=== PATIENT | male | born 1945 | race Caucasian/White ===

== ENCOUNTER 2020-10-28 08:47 | Observation (INO) ==
--- NOTE | 2020-09-29 12:11 | PAT Medication Instructions ---
Medication Instructions Date of Service September 29, 2020 Home Medications aspirin 81 mg PO QAM atorvastatin [Lipitor] 10 mg PO HS fluticasone propion-salmeterol [Advair Diskus] 1 inh INHALATION HS multivitamin 1 tab PO QAM valsartan [Diovan] 160 mg PO QAM DO NOT take the morning of surgery multivitamin 1 tab PO QAM valsartan [Diovan] 160 mg PO QAM Take morning of surgery With a small sip of water, OTHERWISE NOTHING TO EAT OR DRINK AFTER MIDNIGHT: aspirin 81 mg PO QAM (continue as normal unless told otherwise by surgeon) Take evening before surgery atorvastatin [Lipitor] 10 mg PO HS fluticasone propion-salmeterol [Advair Diskus] 1 inh INHALATION HS Other Notes If you have any questions please call us at [phone] or [phone] or [phone] or [phone]
--- NOTE | 2020-10-02 10:56 | Anesthesiology Consultation ---
Date of Service October 02, 2020 Assessment & Plan (1) Encounter for pre-operative examination: - COVID screening: Per assessment on 10/02: Travel screen negative, no known COVID-19 positive contacts or current COVID-19 related symptoms. Patient vaccinated. Surgeon arranging preop COVID testing. Awaiting results. - S/P Right TKA (10/22/15): SAB at L3/4 + PNB at [facility] Chart Review Chart Review: Acceptable Risk for Surgery (pending surgeon-ordered PCP clearance) and Patient seen in Pre Admission Testing Teaching & Discussion Pre-Anesthesia Teaching/Discussion Notes: Instructed NPO after midnight before surgery,except medications with 15 cc of water. Medication instructions provided according to the PAT guidelines. History Surgery Operation Date: 10/28/20 12:35 Proposed Procedures p Left Total Knee Arthroplasty - Hollis Arana DO Height/Weight Height: 5 ft 11 in Weight: 117.4 kg Allergies Allergy/AdvReac Type Severity Reaction Status Date / Time No Known Allergies Allergy Verified 09/24/20 14:55 Medications Home Medications Medication Instructions Recorded Confirmed Last Taken aspirin 81 mg tablet 81 mg PO QAM 09/24/20 09/24/20 Unknown atorvastatin 10 mg tablet (Lipitor) 10 mg PO HS 09/24/20 09/24/20 Unknown fluticasone 250 mcg-salmeterol 50 1 inh INHALATION HS 09/24/20 09/24/20 Unknown mcg/dose blistr powdr for inhalation (Advair Diskus) multivitamin 1 tab PO QAM 09/24/20 09/24/20 Unknown valsartan 160 mg tablet (Diovan) 160 mg PO QAM 09/24/20 09/24/20 Unknown Past Medical History Medical History Arthritis Asthma stable Chronic kidney disease Stage III History of colitis Hyperlipidemia Hypertension Obesity Exercise / Class Metabolic Activity II 4-5 Yardwork/Stairs/Walk up hill Past Surgical History Surgical History History of colonoscopy History of esophagogastroduodenoscopy (EGD) History of repair of rotator cuff R/L History of tonsillectomy History of tooth extraction History of total knee replacement Right TKA (10/22/15): SAB at L3/4 + PNB at [facility] Past Anesthesia History No Family Hx of Anesthesia Complications (except father (post-op nausea)) History of PONV No Hx of Motion Sickness and History of PONV (* "Everytime" *) Social History Smoking Status: Never smoker Do You Dip or Chew Tobacco: No Hx Alcohol Use: Yes alcohol intake frequency: holidays/special occasions only substance use type: does not use Review of Systems Patient denies chest pain, shortness of breath, dyspnea on exertion, fever, chills, cough, wheezing, palpitations. Physical Exam Vital Signs VITALS BP 123/80 P 69 TEMP 98.3 SP02 94%RA RESP 16 PHYSICAL Full cervical extension range of motion. Full TMJ range of motion. TMD 4 finger breaths Mallampati Score 2 Dentition: full upper dentures Lungs: clear throughout to auscultation Cardiac: regular rate and rhythm, no murmurs noted Spine: normal Carotid arteries: negative bruit Extremities: no edema Lab Results Anesthesia Preop Results Results Anesthesia Widget: WBC 5.23 K/uL (4.8-10.8) 10/02/20 Hgb 15.1 g/dL (14.0-18.0) 10/02/20 Hct 46.6 % (42-52) 10/02/20 Plt 192 K/uL (130-400) 10/02/20 Na 142 mmol/L (136-145) 10/02/20 K 4.1 mmol/L (3.5-5.1) 10/02/20 Cl 109 mmol/L (98-107) H 10/02/20 CO2 31 mmol/L (21-32) 10/02/20 BUN 22 mg/dl (7-18) H 10/02/20 Creat 1.59 mg/dl (0.6-1.4) H 10/02/20 Glucose Level 126 mg/dl (70-99) H 10/02/20 HA1c 6.1 % (4.5-5.6) H 10/02/20 Urine Color Yellow 10/02/20 Urine Appearance Clear (Clear) 10/02/20 Urine pH 5.5 (4.5-7.5) 10/02/20 Urine Specific Nelson 1.014 (1.000-1.030) 10/02/20 Urine Protein Negative (Negative) 10/02/20 Urine Glucose (UA) Negative (Negative) 10/02/20 Urine Ketones Negative (Negative) 10/02/20 Urine Blood Negative (Negative) 10/02/20 Urine Nitrite Negative (Negative) 10/02/20 Urine Bilirubin Negative (Negative) 10/02/20 Urine Urobilinogen Negative (Negative) 10/02/20 Urine Leukocyte Esterase Negative (Negative) 10/02/20 Blood Type O Positive 10/02/20 Antibody Screen NEGATIVE 10/02/20 Testing Electrocardiogram Date: 08/26/20 Normal sinus rhythm at 60 bpm. LAD. Incomplete RBBB. Chest X-Ray Date: 10/02/20 FINDINGS: Cardiomediastinal and hilar silhouettes are within normal limits. No pneumothorax, pleural effusion, airspace consolidation or overt pulmonary edema. Degenerative changes of the shoulders and spine. Mild eventration of the right hemidiaphragm. IMPRESSION: No acute process. Stress Test Date: 08/23/17 Type: exercise Stress echo negative for inducible ischemia. No chest discomfort reported. Blood pressure response to exercise was normal. Exercise capacity is average. No significant valvular disease on rest echo. LVEF 60 to 65%. 97% MPHR. 9 METS.
--- NOTE | 2020-10-16 13:35 | History & Physical Report ---
Date of Service October 16, 2020 date of surgery: 10/28/20 Procedure: Left Total Knee Arthroplasty Assessment & Plan (1) Arthritis of knee, left: Plan: Further care discussed with patient and at this point in time has failed conservative measures and would like to proceed with a left total knee replacement. Plan on discharge will be home with home health physical therapy. DVT prophalaxis with TEDs, SCDs and will also place on aspirin 81 mg p.o. b.i.d. for a month postop. Patient will have follow up appointment in our office two weeks post op for staple/suture removal and re-evaluation. Patient otherwise has no other questions or concerns. The risks and benefits have been discussed including, but not limited to, risk of infection, nerve injury, stiffness, loss of motion, failure to improve, etc. Reasonable outcomes and options of treatment were discussed. An explanation of appropriate alternatives to the procedure that may be advantageous were discussed and their risks and benefits, as well as the risks and benefits of not proceeding with treatment. I offered to answer any additional inquiries concerning the treatment involved. All the patient's questions were answered. The patient is agreeable, understanding of the treatment plan and alternatives, and wishes to proceed with the treatment plan. History of Present Illness Chief Complaint: left knee pain Primary Care Provider: DO Prasanna Glez is a 74 year old male who complains of left knee pain, presents for pre- op evaluation prior to a left total knee replacement by Dr Arana at [facility]. He complains of pain, decreased range of motion, instability and stiffness in his left knee. Currently he states that the symptoms are moderate-severe and rated as 6/10. The pain is described as aching, sharp and throbbing. His symptoms are aggravated by ascending stairs, daily activities, first steps while awake walking. Prior NSAIDs include IBU and Aleve. He has been treated with previous cortisone injections in the past without much relief. He had prior Left knee arthroscopy with partial medial meniscectomy Chondroplasty patella Removal loose body by Dr Arana in August 2019. Allergies Allergy/AdvReac Type Severity Reaction Status Date / Time No Known Allergies Allergy Verified 09/24/20 14:55 Home Medications Medication Instructions Recorded Confirmed Type aspirin 81 mg tablet 81 mg PO QAM 09/24/20 09/24/20 History atorvastatin 10 mg tablet (Lipitor) 10 mg PO HS 09/24/20 09/24/20 History fluticasone 250 mcg-salmeterol 50 1 inh INHALATION HS 09/24/20 09/24/20 History mcg/dose blistr powdr for inhalation (Advair Diskus) multivitamin 1 tab PO QAM 09/24/20 09/24/20 History valsartan 160 mg tablet (Diovan) 160 mg PO QAM 09/24/20 09/24/20 History Past Med/Surg History Medical History Arthritis Asthma stable Chronic kidney disease Stage III History of colitis Hyperlipidemia Hypertension Obesity Surgical History History of colonoscopy History of esophagogastroduodenoscopy (EGD) History of repair of rotator cuff R/L History of tonsillectomy History of tooth extraction History of total knee replacement Right TKA (10/22/15): SAB at L3/4 + PNB at [facility] Social History Smoking Status: Never smoker Second Hand Exposure: Yes (IN THE PAST); Do You Dip or Chew Tobacco: No; Hx Alcohol Use: Yes Preferred Language: Maori Rotary Driller Required: No Beliefs That Will Affect Care: None Current Living Situation: Family Current Living Situation Comment: AND SON Feels Safe at Home: Yes Safety Concerns: Feels Safe At This Time Assistive Devices: Denture - Upper and Glasses Review of Systems Review of Systems: All systems reviewed & are unremarkable except as noted in HPI & below Constitutional: no fever, no chills and no sweats Respiratory: no cough and no dyspnea Cardiovascular: no chest pain, no dyspnea and no orthopnea Gastrointestinal: no abdominal pain, no nausea and no vomiting Musculoskeletal: as per Subjective / HPI Physical Exam Physical Exam: HT: 5ft 11in WT: 117.4kg Constitutional: WD/WN, vitals as above no acute distress Respiratory: normal respiratory effort, lungs clear to auscultation no respiratory distress, no labored breathing and does not use accessory muscles Cardiovascular: RRR, no murmur, no edema Gastrointestinal (Abdomen): normal bowel sounds, soft, nontender, no hepatosplenomegaly Musculoskeletal: Knee: + knee abnormal to inspection (LEFT KNEE), + effusion (+1 effusion), + surgical incision (well healed portals), + limited ROM of knee (ROM 0/3/110), + knee ROM with crepitation, + joint line tenderness (medial kyung int line) and + Julianne's sign positive; no deformity, no skin erythema, no ecchymosis, no valgus laxity, no varus laxity, anterior drawer test negative, Norman's sign negative and pivot shift test negative Results & Data Results & Data ([facility]) Diagnostic Findings Left Knee X-ray: left knee series confirm advanced degenerative changes to the left knee, greatest medial compartments and patellofemoral joint, showing joint space narrowing, osteophyte formation and subchondral sclerosis. no acute bony patho logy noted.
[~2020-10-28 08:47] MED LIST: ACETAMINOPHEN 500 MG TAB PO SCH; BUPIVACAINE 0.5 % 5 MG/1 ML PF 10ML VIAL ONE; CeleBREX 200 MG CAP PO SCH; EPINEPHrine INJ 1 MG/ML AMP ONE; FAMOTIDINE 20 MG TAB PO SCH; GABAPENTIN 300 MG CAP PO SCH; LR 500ML BOLUS, THEN 15ML/HR IV SCH; METOCLOPRAMIDE HCL 10 MG TABLET PO SCH; ROPIVACAINE 0.5% 5 MG/ML 30 ML VIAL ONE; ROPIVACAINE 0.5% HCL/PF 150 MG, BUPIVACAINE 0.75% MPF 20 ML, EPINEPHrine 30MG/30ML (OR ... INSTIL SCH; Scopolamine 1 MG TDSY TD SCH; TRANEXAMIC ACID 1,000 MG **IV Intra-op IV SCH; TRANEXAMIC ACID 1,000 MG **IV Pre-op IV SCH; dexAMETHasone 4 MG TAB PO SCH
--- NOTE | 2020-10-28 09:14 | History & Physical Bridge Note ---
Date of Service October 28, 2020 History & Physical Bridge Note I have examined the patient, reviewed the History & Physical and in the interval since the performance of the History & Physical I have noted the following changes of clinical significance: no changes noted
[2020-10-28] MEDS ORDERED: fentaNYL citrate 100 MCG/2 ML VIAL ONE (10:23)
[2020-10-28] MEDS ORDERED: MIDAZOLAM HCL 1 MG/ML 2ML VIAL ONE (10:23)
[2020-10-28] MEDS ORDERED: ePHEDrine sulfate 50 MG/ML AMP IV PRN (11:06)
[2020-10-28] MEDS ORDERED: ONDANSETRON INJ 2 MG/ML 2 ML VIAL IV PRN ×2 (11:06→14:58)
[2020-10-28] MEDS ORDERED: fentaNYL citrate 100 MCG/2 ML VIAL IV PRN (11:06)
[2020-10-28] MEDS ORDERED: ATROPINE SULFATE 0.1 MG/ML 10ML SYR IV PRN (11:06)
[2020-10-28] MEDS ORDERED: HYDROmorphone INJ 1 MG/ML SYRINGE IV PRN ×2 (11:06→14:58)
[2020-10-28] MEDS ORDERED: ORTHO JOINT ANESTHETIC ONE (11:13)
--- NOTE | 2020-10-28 12:48 | Operative Report ---
Post Operative Report Pre & Post Diagnosis Operation Date: 10/28/20 11:20 Pre-Op Diagnosis: Unilateral Primary Osteoarthritis Left Knee Post-Op Diagnosis: Unilateral Primary Osteoarthritis Left Knee I identified the patient and participated in the time-out.: Yes Procedure Operation Date: 10/28/20 11:20 Actual Procedures p Left Total Knee Arthroplasty(Left utilizing Santacruz & Neph journey 2 patient matched total knee arthroplasty size femur 6 tibia 6 polyten patella 31 oval) - Hollis Arana DO Surgeon Hollis Arana DO Cable Mechanic Ted SAMANO Estimated Blood Loss 5 Findings Consistent with Post-Op Diagnosis Patient presents with severe end-stage tricompartmental degenerative joint disease left knee 5 degree flexion contracture varus alignment subchondral sclerosis marginal osteophytes cortical subcortical cystic changes with moderate to large effusion Specimens Bone and cartilage Drains Medium bore Hemovac Anesthesia Type MAC Spinal Regional Complications none Disposition Accompanied Patient To Recovery: No Disposition: Recovery Room Indications Patient presents with severe end-stage tricompartmental degenerative joint disease left knee varus alignment [id number] medial and patellofemoral compartments with marginal osteophytes patient is failed times a conservative management clinic physical therapy anti-inflammatories relative rest activity modification corticosteroid injection viscosupplementation the above intraoperative findings were noted Description of Procedure After proper prepping and draping of the left lower extremity anterior midline incision was made over the region of the extensor extensor mechanism after meticulous hemostasis was obtained and maintained in subcutaneous tissues a medial parapatellar incision was made The patella was subluxed lateralward the medial lateral gutter were cleaned from any hypertrophic synovitis and scar tissue of the distal femoral block was placed and the distal femoral osteotomy cut was made subsequently the chamfers anterior and posterior osteotomy cuts were made utilizing the 4-in-1 block the tibia was subsequently subluxed anteriorward medial and ateral meniscal remnants were excised in their entirety remnants of the anterior and posterior cruciate ligaments were excised in their entirety excellent exposure of the proximal tibia was obtained the tibial osteotomy guide was placed on the proximal tibial osteotomy cut was made once again the knee was irrigated with copious amounts of sterile saline solution the patella was subsequently everted lateralward thickened scar tissue around the patella was removed the patella was subsequently cut utilizing a freehand technique and was drilled prepared for final preparation and placement of patella socially flexion-extension gaps were checked and the equal and symmetric trials were placed to the appropriate femoral and tibial trials with poly-spacer being placed for equal flexion and extension gaps and full range of motion including extension to 0 and flexion to 140 the trial components after having been taken to recovery range of motion was subsequently removed meticulous hemostasis was obtained and maintained subsequently a knee block injection of joint cocktail including ropivacaine 0.5% 150 mg. Bupivacaine 0.5% epinephrine 1-200,030 mL's toradol 30 mg dexamethasone 4 mg ketamine 10 mg clonidine 100 micrograms normal saline solution 30 mg was infiltrated into the soft tissues of the posterior knee medial lateral gutters and periosteal synovium special attention was paid to protect neurovascular structures at all times subsequently trial components having been removed the knee was irrigated with sterile saline solution. debris was removed the proximal tibia was subsequently prepared and was made ready for the placement of the tibial component tibial component was also cemented and tamped into position the femoral component was subsequently placed and cemented in the position the patellar component was subsequently cemented in position because hemostasis once again obtained and maintained wound having been thoroughly irrigated with debridement and debridement lavage was performed as well as a medial parapatellar incision closed with #1 Vicryl in interrupted fashion subcutaneous was closed with #2 Vicryl skin was closed with skin clips. PA-C was necessary for prepping and drapping as well as wound closure of deep fascia Sub cutaneous tissue and skin and was necessary for the case. A sterile compressive dressing was placed patient was taken to recovery in stable condition of report dictated by Sumit I attest to the content of the Intraoperative Record and any orders documented therein. Any exceptions are noted below. I attest to the content of the Intraoperative Record and any orders documented therein. Any exceptions are noted below.
[2020-10-28] MEDS ORDERED: LIDOCAINE 2% 2 ML VIAL/AMP(20MG/ML) INFIL ONE (13:27)
[2020-10-28] MEDS ORDERED: PROPOFOL IV EMULSION 10 MG/ML 20 ML VIAL IV ONE (13:27)
--- NOTE | 2020-10-28 14:09 | Anesthesiology Progress Note ---
Date of Service October 28, 2020 Anesthesia Post Procedure Vital Signs Vital Signs: Temp Pulse Pulse Resp BP BP Pulse Ox 10/28/20 14:00 48 L 18 116/72 95 10/28/20 13:50 54 L 16 117/75 94 10/28/20 13:40 48 L 14 105/70 97 10/28/20 13:30 54 L 18 114/66 96 10/28/20 13:23 36.6 C 80 16 109/63 98 10/28/20 10:25 36.8 C 56 L 18 123/80 94 10/28/20 09:55 37 C 71 18 167/88 H 95 Transfer of Care Handoff Completed per policy Notes Mental Status: alert / awake / arousable and participated in evaluation Patient Amnestic to Procedure: Yes Nausea / Vomiting: adequately controlled Pain: adequately controlled Airway Patency, RR, SpO2: stable & adequate BP & HR: stable & adequate Hydration State: stable & adequate Neuraxial Anesthesia: was administered and sensory block is resolving Anesthetic Complications: no major complications apparent and Pt Satisfied with anesthetic care
--- NOTE | 2020-10-28 14:20 | XRay Report ---
XR knee LT 1 or 2V routine HISTORY: 74 years-old Male Surgical Post Op left knee total joint arthroplasty COMPARISON: None TECHNIQUE: 2 views of the left knee FINDINGS: Left knee total joint arthroplasty with patellar resurfacing. Expected postoperative soft tissue swel ling and deep tissue air with surgical drainage catheter. No acute fracture or unexpected opaque fore ign body. IMPRESSION: Left knee total joint arthroplasty with expected postoperative changes. ACT 112: Negative or not required by law. The above report was generated using voice recognition software. It may contain grammatical, syntax o r spelling errors. Electronically signed by: Marcello Terrell M.D. 10/28/2020 2:18 PM
[2020-10-28] MEDS ORDERED: oxyCODONE HCL IR 5 MG TAB (IMMEDIATE RELEASE) PO PRN (14:58)
[2020-10-28] MEDS ORDERED: SODIUM CHLORIDE 0.9% 1000ML 1,000 ML IV SCH (14:58)
[2020-10-28] MEDS ORDERED: diphenhydrAMINE Capsule 25 MG CAP PO PRN (14:58)
[2020-10-28] MEDS ORDERED: NALOXONE HCL 0.4 MG/1 ML VIAL/CARP IV PRN (14:58)
[2020-10-28] MEDS ORDERED: MAGNESIUM HYDROXIDE SUSP 30 ML UDC PO PRN (14:58)
[2020-10-28] MEDS ORDERED: METOCLOPRAMIDE HCL INJ 5 MG/ML 2 ML VIAL IV PRN (14:58)
[2020-10-28] MEDS ORDERED: bisacodyL 10 MG SUPP PR PRN (14:58)
[2020-10-28] MEDS: ACETAMINOPHEN 500 MG TAB PO SCH ×2 (15:38→21:17)
[2020-10-28] MEDS: Scopolamine CHECK PATCH PLACEMENT SCH ×2 (15:40→23:39)
[2020-10-28] MEDS: ceFAZolin 2000MG 2,000 MG/15 ML SYR IV SCH (19:47)
[2020-10-28] MEDS ORDERED: FLUTICASONE/VILANTEROL 200/25MCG 14 PUFFS/INHALER INH SCH (21:00)
[2020-10-28] MEDS ORDERED: ATORVASTATIN 10 MG TAB PO SCH (21:00)
[2020-10-28] MEDS ORDERED: SENNA 8.6 MG TAB PO SCH (21:00)
[2020-10-28] MEDS: ASPIRIN 81 MG ECTAB PO SCH (21:14)
[2020-10-28] MEDS: DOCUSATE SODIUM 100 MG CAP PO SCH (21:15)
[2020-10-29] MEDS: ceFAZolin 2000MG 2,000 MG/15 ML SYR IV SCH (03:30)
[2020-10-29] MEDS: ACETAMINOPHEN 500 MG TAB PO SCH (05:52)
[2020-10-29 06:52] LABS: Hematocrit (blood only) 39.7 % (42-52); Hemoglobin 13.4 g/dL (14.0-18.0); Mean Corpuscular Hemoglobin 30.3 pg (25-34); Mean Corpuscular Hgb Conc 33.8 g/dL (32-36); Mean Corpuscular Volume 89.8 fL (80-100); Mean Platelet Volume 9.8 fL (7.4-10.4); Platelet Count 194 K/uL (130-400); RDW Coefficient of Variation 13.3 % (11.5-14.5); Red Blood Count 4.42 M/uL (4.7-6.1); White Blood Count 12.03 K/uL (4.8-10.8)
[2020-10-29 07:27] LABS: BUN Creatinine Ratio 13.1 (10-20); Calcium 8.4 mg/dl (8.5-10.1); Creatinine Clr Calc Pharmacy 46.2 ml/min; Est GFR (Non-African American) 36.3 ml/min; Potassium 4.1 mmol/L (3.5-5.1)
--- NOTE | 2020-10-29 08:00 | Orthopedic Progress Note ---
Date of Service October 29, 2020 Assessment & Plan (1) Arthritis of knee, left: Plan: Postop day 1 status post left total knee arthroplasty. PT/OT protocols. Weightbearing as tolerated. DVT prophylaxis-aspirin p.o. twice daily, SCDs, RAYMON beck. Pain management as written. CKD stage III-slight bump in his creatinine to 1.8 from 1.59 preop. We will give him a small bolus of fluids this morning. Mild leukocytosis-most likely related to surgical stress and/or preoperative steroids. Patient remains asymptomatic. DC planning-patient is planning for home health services upon discharge. Admission and Anticipated Discharge Date Admission Date: October 28, 2020 Subjective Postop day 1 Patient lying in bed. Awake and alert. No complaints this morning. Pain is controlled. Denies shortness of breath, chest pain, lightheadedness. Physical Exam Physical Exam: Dressings are clean, dry, and intact. Calves are soft and nontender. Neurovascular is intact. Toes are mobile. He has good dorsiflexion and plantarflexion of the left foot. Hemovac drainage is 150 mL from the previous shift. Results & Data ([facility]) Vital Signs (Past 12 Hours) Vital Signs Temp Pulse Resp BP Pulse Ox 10/29/20 07:27 36.7 C 48 L 16 115/63 95 10/29/20 03:56 37.1 C 65 20 132/64 94 10/28/20 23:05 36.5 C 51 L 18 115/61 96 Laboratory Results Laboratory Results WBC 12.03 K/uL (4.8-10.8) H 10/29/20 06:29 RBC 4.42 M/uL (4.7-6.1) L 10/29/20 06:29 Hgb 13.4 g/dL (14.0-18.0) L 10/29/20 06:29 Hct 39.7 % (42-52) L 10/29/20 06:29 MCV 89.8 fL (80-100) 10/29/20 06:29 MCH 30.3 pg (25-34) 10/29/20 06:29 MCHC 33.8 g/dL (32-36) 10/29/20 06:29 RDW Std Deviation 44.0 fL (36.4-46.3) 10/29/20 06:29 RDW Coeff of Lianna 13.3 % (11.5-14.5) 10/29/20 06:29 Plt Count 194 K/uL (130-400) 10/29/20 06:29 MPV 9.8 fL (7.4-10.4) 10/29/20 06:29 Sodium 136 mmol/L (136-145) 10/29/20 06:29 Potassium 4.1 mmol/L (3.5-5.1) 10/29/20 06:29 Chloride 108 mmol/L (98-107) H 10/29/20 06:29 Carbon Dioxide 20 mmol/L (21-32) L 10/29/20 06:29 Anion Gap 8.0 (3-11) 10/29/20 06:29 BUN 24 mg/dl (7-18) H 10/29/20 06:29 Creatinine 1.81 mg/dl (0.6-1.4) H 10/29/20 06:29 Est Cr Clr Drug Dosing 46.2 ml/min 10/29/20 06:29 Est GFR ( Amer) 42.0 ml/min 10/29/20 06:29 Est GFR (Non-Af Amer) 36.3 ml/min 10/29/20 06:29 BUN/Creatinine Ratio 13.1 (10-20) 10/29/20 06:29 Glucose 142 mg/dl (70-99) H 10/29/20 06:29 Calcium 8.4 mg/dl (8.5-10.1) L 10/29/20 06:29 COVID-19 Eval Order Covid19 [facility] 10/28/20 Unknown SARS-CoV-2, RNA, NAAT NEGATIVE (NEGATIVE) 10/28/20 Unknown Impressions Knee X-Ray 10/28/20 13:27 XR knee LT 1 or 2V routine HISTORY: 74 years-old Male Surgical Post Op left knee total joint arthroplasty COMPARISON: None TECHNIQUE: 2 views of the left knee FINDINGS: Left knee total joint arthroplasty with patellar resurfacing. Expected postoperative soft tissue swelling and deep tissue air with surgical drainage catheter. No acute fracture or unexpected opaque foreign body. IMPRESSION: Left knee total joint arthroplasty with expected postoperative changes. ACT 112: Negative or not required by law. The above report was generated using voice recognition software. It may contain grammatical, syntax or spelling errors. Electronically signed by: Marcello Terrell M.D. 10/28/2020 2:18 PM
[2020-10-29] MEDS ORDERED: SODIUM CHLORIDE 0.9% 1000ML 500 ML IV ONE (08:13)
[2020-10-29] MEDS ORDERED: VALSARTAN 80 MG TAB PO SCH (09:00)
[2020-10-29] MEDS ORDERED: MULTIVITAMIN TAB PO SCH ×2 (09:00)
[2020-10-29] MEDS: DOCUSATE SODIUM 100 MG CAP PO SCH (09:16)
[2020-10-29] MEDS: ASPIRIN 81 MG ECTAB PO SCH (09:16)
[2020-10-29] MEDS: Scopolamine CHECK PATCH PLACEMENT SCH (09:16)
[2020-10-29] MEDS ORDERED: HYDROCODONE/ACETAMOPHEN 5/325MG TAB PO PRN (11:21)
--- NOTE | 2020-10-29 14:29 | Discharge Summary ---
Date of Service date of discharge: October 29, 2020 date of admission: 10-28-20 Admission HPI Per Admitting Provider Prasanna is a 74 year old male who complains of left knee pain, presents for pre- op evaluation prior to a left total knee replacement by Dr Arana at [facility]. He complains of pain, decreased range of motion, instability and stiffness in his left knee. Currently he states that the symptoms are moderate-severe and rated as 6/10. The pain is described as aching, sharp and throbbing. His symptoms are aggravated by ascending stairs, daily activities, first steps while awake walking. Prior NSAIDs include IBU and Aleve. He has been treated with previous cortisone injections in the past without much relief. He had prior Left knee arthroscopy with partial medial meniscectomy Chondroplasty patella Removal loose body by Dr Arana in August 2019. Principal Diagnosis left knee pain Discharge Exam Vital Signs Temp Pulse Pulse Resp BP Pulse Ox 10/29/20 13:10 37.1 C 52 L 55 L 16 131/71 92 10/29/20 11:22 37.1 C 55 L 16 131/71 92 10/29/20 07:27 36.7 C 48 L 16 115/63 95 10/29/20 03:56 37.1 C 65 20 132/64 94 10/28/20 23:05 36.5 C 51 L 18 115/61 96 10/28/20 19:20 36.5 C 57 L 18 121/69 94 10/28/20 17:56 36.5 C 64 18 152/75 H 95 10/28/20 17:12 36.4 C L 50 L 18 141/80 H 95 10/28/20 15:28 36.6 C 50 L 18 133/74 95 10/28/20 14:58 36.9 C 52 L 18 144/87 H 97 10/28/20 14:55 36.4 C L 45 L 16 134/74 97 10/28/20 14:30 52 L 20 116/68 96 Intake and Output 10/28/20 10/29/20 10/29/20 22:59 06:59 14:59 Intake Total 1864.167 / 3724.167 660 / 3724.167 500 / 500 Output Total 300 / 1325 1000 / 1325 400 / 400 Balance 1564.167 / 2399.167 -340 / 2399.167 100 / 100 Intake: IV 1864.167 / 1864.167 500 / 500 Lactated Ringer's 1,000 ml @ 15 1000 / 1000 mls/hr IV .Q24H [facility] Rx#: [id number] Sodium Chloride 0.9% 1000ML 500 691.667 / 691.667 500 / 500 ml @ 999 mls/hr IV .Q31M [facility] Rx#:[id number] Tranexamic Acid / 0.7% NaCl 1, 100 / 100 000 mg In 100 ml @ 600 mls/hr IV TODAY@0600 [facility] Rx#:[id number] ceFAZolin 3000MG 72.5 ml @ 130 72.5 / 72.5 mls/hr IV PREOP [facility] Rx#: [id number] Oral 660 / 660 Output: Urine 300 / 1100 800 / 1100 400 / 400 Drain Output 200 / 220 Left Knee 200 / 220 Other: # Unmeasured Voids 375 Weight 115.326 kg 115.326 kg Patient Weight 10/30/20 06:59 Weight 115.326 kg Musculoskeletal left knee: NVDI, calf SNT, negative ilda sign. DP palpable, able to wiggle toes/ankle movement without difficulty. dressing clean dry and intact. Discharge Data Allergies Allergy/AdvReac Type Severity Reaction Status Date / Time No Known Allergies Allergy Verified 09/24/20 14:55 Procedures Performed Operation Date: 10/28/20 11:20 Actual Procedures p Left Total Knee Arthroplasty(Left) - Hollis Arana DO Ordered Studies 10/28/20 05:00 US - OR guided needle placemen Routine Hospital Course (1) Arthritis of knee, left: Postop day 1 status post left total knee arthroplasty. PT/OT protocols. Weightbearing as tolerated. DVT prophylaxis-aspirin p.o. twice daily, RAYMON Morris. Pain management as written. CKD stage III-slight bump in his creatinine to 1.8 from 1.59 preop. We will give him a small bolus of fluids this morning. Mild leukocytosis-most likely related to surgical stress and/or preoperative steroids. Patient remains asymptomatic. DC planning-patient is planning for home health services upon discharge. Total Time Total Time Spent Total Time Spent (In Minutes): 20 Discharge Plan Discharge Items Patient Disposition: Home - Home Health Services Reason For Visit: Unilateral Primary Osteoarthritis Left Knee Discharge Diagnosis: left total knee replacement Activity: Per Instructions section Lifting: Wait until after follow-up appointment Weightbearing: Left weightbearing Weightbearing Comment: WBAT with walker Non-emergency contact: Surgeon Call non-emergency contact if: you have any medication questions, your temperature is above 101, your wound has increased redness, your wound has increased drainage and your wound pain has increased Follow-up/Referrals: Shay Arias, [Primary Care Provider] - Diet: Regular Diet Comment: return to your regular diet at home Addtl Attending Provider Instructions: ACTIVITY RECOMMENDATIONS: SELF CARE INSTRUCTIONS AFTER TOTAL KNEE REPLACEMENT A. You may need to continue a physical therapy program after discharge from the hospital. There are several options available to you. Your doctor will assist you in selecting the best one for you. 1. An out-patient facility 2 to 3 times a week for therapy or home therapy. 2. Continue working on all exercises taught to you in the hospital. Your goals should be to increase bending of your knee to 90 degrees and beyond and to fully straighten your knee. B. You may progress at your own pace from walking with a walker or crutches to a cane; then to no assistive devices. C. Make walking a part of your daily routine. Be up as much as comfortable with rest periods throughout the day. Rest with leg elevation is very important. Use the ice wrap frequently for the first 3-4 weeks. D. There are no restrictions on activities. 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 E. Wear the long elastic stockings (RAYMON hose) 20 hours a day for 2 weeks after surgery. They can be removed several times a day for laundering and for a bath. F. You may shower, no tub baths until cleared by your doctor. SPECIAL CARE INSTRUCTIONS: VERY IMPORTANT TO READ AND REVIEW A. There are a few signs you need to watch for after you are home. Call [facility] if you notice any of the followin. Increased severe knee pain. Some pain is expected especially when you exercise. 2. Increased swelling in your leg or knee; pain or swelling of the calf muscle in either lower leg. 3. Any fluid drainage from the incision. 4. Shortness of breath or chest pain. B. Please call [facility] at if you have any concerns or questions about your operation or recovery. The doctor or his nurse will return your call promptly. C. You must take antibiotics before dental work, bladder, bowel or other surgery. Your doctor will provide you with a permanent care to carry describing this precaution. IMPORTANT: * REMEMBER TO TAKE ASPIRIN, 81 MG, TWICE DAILY FOR 4 WEEKS UNLESS OTHERWISE DIRECTED. THIS IS YOUR BLOOD THINNER. * HIGH RISK PATIENTS MAY BE PRESCRIBED A STRONGER BLOOD THINNER. THIS WILL BE PROVIDED AT DISCHARGE. * CALL IF INCREASED PAIN, REDNESS, DRAINAGE OR FEVER GREATER THAT 101. * WEAR RAYMON HOSE 20 HOURS PER DAY FOR 2 WEEKS. * DERMABOND Prineo- This is a mesh tape dressing that is covered with glue. It should remain in place until the incision is properly healed, usually 10-14 days. This dressing is designed to naturally slough off. You may trim the excess mesh tape as it peels off. Incision may be briefly wet in a shower. Dry immediately by blotting with a clean, dry towel. Do not bath or swim until instructed by your doctor. Do not scratch, rub, or pick at the dressing. Do not apply any topical ointments or lotions until dressing is completely removed and/or instructed by your doctor. There may be a small piece of suture material at one end of your incision. Do not pull or trim this. If it is bothersome or catching on clothing, you may cover it with a band-aid. IF INCISION IS LEAKING THROUGH DRESSING, CALL THE OFFICE . Home health to remove hemovac drain on post op day #2. FOLLOW UP VISIT: If appointment is not already scheduled: Please call [facility] to make a follow-up appointment for 2 weeks after your surgery at . Stand-Alone Forms: My [facility] [employer], Smoking Cessation Medications and DC Order Prescriptions: New aspirin 81 mg Tablet,Delayed Release (Dr/Ec) 81 mg PO BID 30 Days Qty: 60 RF: 0 polyethylene glycol 3350 [Miralax] 17 gram powder in packet 17 g PO DAILY PRN (Reason: constipation) Qty: 5 RF: 0 cefadroxil 500 mg capsule 500 mg PO BID Qty: 28 RF: 1 hydrocodone-acetaminophen 5-325 mg tablet 1 - 2 tab PO .Q4h-6h MDD 6 PRN (Reason: pain) Qty: 30 RF: 0 Continued multivitamin Tablet 1 tab PO QAM RF: 0 fluticasone propion-salmeterol [Advair Diskus] 250-50 mcg/dose Blister With Device 1 inh INHALATION HS RF: 0 atorvastatin [Lipitor] 10 mg Tablet 10 mg PO HS RF: 0 valsartan [Diovan] 160 mg Tablet 160 mg PO QAM RF: 0 Discontinued aspirin 81 mg Tablet 81 mg PO QAM RF: 0 Discharge Orders: Discharge Order (Routine); Ordered 10/29/20 Ordered By: Abraham Rodgers Admission Data Admit Date/Time: 10/28/20 13:27 Attending Provider: Hollis Arana Admit Provider: Hollis Arana Primary Care Provider: Shay Arias Other Providers: [facility] Other Interventions: Discharge Summary Assessment (RN) Last Done: 10/29/20 13:10
== END 2020-10-29 14:24 | disposition home health service (06) ==
LOC: 3E 08:47 → ASU 08:47